=== PATIENT | female | born 1950 | race Caucasian/White ===

== ENCOUNTER 2020-01-22 09:59 | Emergency (ER) | payer MEDICARE ==
[~2020-01-22] VITALS: Ht 162.6 cm; Wt 60.7 kg
[~2020-01-22 09:59] MED LIST: ASPI81TA45 PO; ATOR-2 PO; ATOR40TA78 PO; CARV12.52 PO; CHOL10003 PO; CLON0.1T22 PO; CLOP75TA PO; CYAN25009 PO; CYCL-259 PO; DICY10CA3 PO; DOXE3TAB3 PO; FERR-46 PO; GABA300C PO; HYDR-3245 PO; HYDR-826 PO; HYDR25TA6 PO; ICOS1CAP PO; INSU100V8 SQ; POTA20TA89 PO; PRAM0.125 PO; SPIR25TA5 PO; TRAZ-175 PO; magnesium sulfate PO
--- NOTE | 2020-01-22 11:40 | NUR ---
PT HAD RIGHT ENDARTERECTOMY THURSDAY. SOME REDNESS AND SWELLING NOTED. PT WAS CONCERNED BECAUSE SHE HAD A LOW PULSE OXYGEN READING THIS MORNING THAT RESPONDED TO HER 'S OXYGEN. SPEAKING IN FULL SENTENCES WITHOUT LABORED BREATHING. STATES SHE HAS SOME DIFFICULTY SWALLOWING WHEN EATING.
[2020-01-22 12:09] LABS: ALANINE AMINOTRANSFERASE 14 U/L (12-78); ALBUMIN 3.7 g/dL (3.4-5.0); ANION GAP 4 mmol/L (5-15); CALCIUM 8.9 mg/dL (8.5-10.1); CHLORIDE 103 mmol/L (98-107); CREATININE 1.12 mg/dL (0.55-1.02)
[2020-01-22 12:12] LABS: ALKALINE PHOSPHATASE 75 U/L (45-117); BILIRUBIN,TOTAL 0.2 mg/dL (0.2-1.0); TOTAL PROTEIN 7.2 g/dL (6.4-8.2)
[2020-01-22] MEDS ORDERED: OMNIPAQUE 350 MG/ML, 75ML BOTTLE ONE (12:15)
--- NOTE | 2020-01-22 12:15 | NUR ---
AMBULATED TO BATHROOM WITH USE OF WALKER, STEADY GAIT. PROVIDED INCENTIVE SPIROMETER AND PT UTILIZED IT.
--- NOTE | 2020-01-22 12:30 | NUR ---
TO CT [facility]IA [facility]
[2020-01-22 12:31] LABS: BASOPHILS % (AUTO) 1 % (0-1); EOSINOPHILS % (AUTO) 1 % (1-7); LYMPHOCYTES % (AUTO) 19 % (22-44); MEAN CORPUSCULAR HEMOGLOBIN 24.3 pg (27.0-34.8); MEAN CORPUSCULAR HGB CONC 31.3 g/dL (32.4-35.8); MEAN PLATELET VOLUME 8.6 fL (7.4-10.4); MONOCYTES % (AUTO) 9 % (2-9); NEUTROPHILS % (AUTO) 70 % (42-75); PLATELET COUNT 329 x10^3/uL (130-400); RED BLOOD COUNT 2.87 x10^6/uL (3.82-5.3); RED CELL DISTRIBUTION WIDTH 19.3 % (9.6-15.2)
[2020-01-22 12:35] VITALS: BP 104/65
[2020-01-22 12:47] LABS: ANISOCYTOSIS 1+; HYPOCHROMIA 1+; MD MORPH REVIEW ONLY; MICROCYTOSIS 1+
[2020-01-22 12:48] LABS: <PLATELET ESTIMATE> ADEQUATE; <PLT MORPHOLOGY> NORMAL PLT MORPH; OVALOCYTES 1+; POLYCHROMASIA 1+
[2020-01-22] MEDS ORDERED: HYDROcodone/APAP 10/325 MG TABLET PO ONE (13:00)
[2020-01-22] MEDS ORDERED: HYDROcodone/APAP 10/325 MG TABLET ONE (13:13)
[2020-01-22] MEDS ORDERED: IRON SUCROSE COMPLEX 100MG/5ML IV STA (13:15)
== END 2020-01-22 13:30 | disposition home or self-care (01) ==
LOC: ED 12:07
DX: R06.00 Dyspnea, unspecified (principal); D50.9 Iron deficiency anemia, unspecified; Z86.79 Personal history of other diseases of the circulatory system; R13.10 Dysphagia, unspecified; I48.91 Unspecified atrial fibrillation; I10 Essential (primary) hypertension; J44.9 Chronic obstructive pulmonary disease, unspecified; E10.9 Type 1 diabetes mellitus without complications; Z86.73 Personal history of transient ischemic attack (TIA), and cerebral infarction without residual deficits; Z90.49 Acquired absence of other specified parts of digestive tract; Z90.89 Acquired absence of other organs
CPT/HCPCS: 36415; 70360; 71045; 71275; 80053; 85025; 93005; 99285; Q9967

== ENCOUNTER 2020-08-21 05:39 | Day surgery (SDC) | payer MEDICARE ==
[~2020-08-21] VITALS: Ht 162.6 cm; Wt 57.7 kg
[~2020-08-21 05:39] MED LIST changes: -CYCL-259 PO; +CYCL10TA2 PO; -HYDR-3245 PO; +HYDR1TAB53 PO
[2020-08-21 06:55] VITALS: BP 180/77
[2020-08-21] MEDS ORDERED: LACTATED RINGERS 1,000 ML IV SCH (07:00)
[2020-08-21] MEDS ORDERED: CHLORHEXIDINE 15 ML UDC PO ONE (07:00)
[2020-08-21 07:03] LABS: BASOPHILS % (AUTO) 1 % (0-1); EOSINOPHILS % (AUTO) 2 % (1-7); LYMPHOCYTES % (AUTO) 16 % (22-44); MEAN CORPUSCULAR HEMOGLOBIN 30.6 pg (27.0-34.8); MEAN CORPUSCULAR HGB CONC 34.2 g/dL (32.4-35.8); MEAN PLATELET VOLUME 9.2 fL (7.4-10.4); MONOCYTES % (AUTO) 6 % (2-9); NEUTROPHILS % (AUTO) 76 % (42-75); PLATELET COUNT 286 x10^3/uL (130-400); RED BLOOD COUNT 4.44 x10^6/uL (3.82-5.3); RED CELL DISTRIBUTION WIDTH 14.4 % (9.6-15.2)
[2020-08-21 07:07] VITALS: BP 188/77
[2020-08-21 07:10] LABS: ALANINE AMINOTRANSFERASE 23 U/L (12-78); ALBUMIN 4.1 g/dL (3.4-5.0); ANION GAP 4 mmol/L (5-15); CALCIUM 9.4 mg/dL (8.5-10.1); CHLORIDE 106 mmol/L (98-107); CREATININE 0.77 mg/dL (0.55-1.02)
[2020-08-21 07:12] LABS: ALKALINE PHOSPHATASE 110 U/L (45-117); BILIRUBIN,TOTAL 0.3 mg/dL (0.2-1.0); TOTAL PROTEIN 7.8 g/dL (6.4-8.2)
[2020-08-21 07:28] LABS: PROTHROMBIN TIME 10.7 Seconds (9.6-11.5)
[2020-08-21] MEDS ORDERED: PROPOFOL 50 ML ONE (07:31)
[2020-08-21] MEDS ORDERED: hydrALAzine 20 MG/ML, 1ML ONE (08:54)
[2020-08-21] MEDS ORDERED: hydrALAzine 20 MG/ML, 1ML IV PRN (09:30)
== END 2020-08-21 09:40 | disposition home or self-care (01) ==
LOC: OUT 05:39
PROVIDERS: ATTEND Internal Medicine Geriatric Medicine
DX: R93.3 Abnormal findings on diagnostic imaging of other parts of digestive tract (principal); D50.9 Iron deficiency anemia, unspecified; E11.9 Type 2 diabetes mellitus without complications; I10 Essential (primary) hypertension; E78.5 Hyperlipidemia, unspecified; M19.90 Unspecified osteoarthritis, unspecified site; Z20.822 Contact with and (suspected) exposure to COVID-19; Z79.01 Long term (current) use of anticoagulants; Z79.899 Other long term (current) drug therapy; Z88.5 Allergy status to narcotic agent; Z88.8 Allergy status to other drugs, medicaments and biological substances
CPT/HCPCS: 44360; 80053; 82962; 85025; 85610; 85730; 87635; 93005; J0360; J2704; J7120